=== PATIENT | male | born 1955 | race Two or more races ===

== ENCOUNTER 2018-05-16 13:04 | Emergency (ER) | payer MEDICAID ==
[~2018-05-16] VITALS: Ht 170.2 cm; Wt 74.8 kg
[2018-05-16] MEDS ORDERED: LOSARTAN POTASS50 MG ORAL (13:43)
[2018-05-16] MEDS ORDERED: GLIPIZIDE5 MG ORAL (13:43)
[2018-05-16] MEDS ORDERED: JANUVIA100 MG ORAL (13:43)
[2018-05-16] MEDS ORDERED: AMLODIPINE BESYL5 MG ORAL (13:43)
[2018-05-16] MEDS ORDERED: ATORVASTATIN CA10 MG ORAL (13:43)
[2018-05-16] MEDS ORDERED: METFORMIN HCL850 M1 ORAL (13:43)
[2018-05-16] MEDS ORDERED: ASPIR 8181 MG ORAL (13:43)
--- NOTE | 2018-05-16 14:18 | Emergency Room Report ---
History of Present Illness General Chief Complaint: Laceration Source: Patient Present Illness HPI 63-year-old male presents to the emergency department complaining of laceration which he sustained yesterday at 1:00 to the webbing of his left hand between his thumb and index finger. Patient states that on occasion it will begin bleeding again. Pt. denies pain. Patient states that he has a history of diabetes he ascribes that he was washing dishes when a rash broke and caused laceration. Patient denies suspicion for possible foreign body. He states that he rinsed them well when the injury occurred and applied pressure which did stop bleeding at that time. He states that he is right-hand dominant. He denies taking blood thinning medications. Denies paresthesias. Allergies: Coded Allergies: AMOXICILLIN (Verified Allergy, Unknown, 05/16/18) Patient History Past Medical History: see triage record, DM Past Surgical History: none Pertinent Family History: none Immunizations: UTD Reviewed Nursing Documentation: PMH: Agreed; PSxH: Agreed Nursing Documentation-PMH Past Medical History: No History, Except For Hx Hypertension: Yes - hyperlipidemia ,htn Hx Diabetes: Yes - type 2 Review of Systems All Other Systems: negative except mentioned in HPI Physical Exam Vital Signs Date Time Temp Pulse Resp B/P (MAP) Pulse Ox O2 Delivery O2 Flow Rate FiO2 05/16/18 13:11 98.6 95 17 148/77 95 Room Air Sp02 EP Interpretation: reviewed, normal General Appearance: no apparent distress, alert, GCS 15, non-toxic Head: normocephalic, atraumatic Eyes: bilateral eye normal inspection, bilateral eye PERRL ENT: hearing grossly normal, normal voice Neck: full range of motion Respiratory: lungs clear, normal breath sounds, speaking full sentences Cardiovascular #1: regular rate, rhythm, normal capillary refill Musculoskeletal: back normal, gait/station normal, normal range of motion, non- tender Neurologic: alert, oriented x3, responsive, motor strength/tone normal, sensory intact, speech normal, grossly normal Psychiatric: judgement/insight normal Skin: normal color, no rash, warm/dry, well hydrated, laceration - linear laceration to the webbed space of the left thumb that is approx 0.4 cm in length Medical Decision Making PA Attestation Dr. Mar is my supervising Physician whom patient management has been discussed with. Diagnostic Impression: Primary Impression: Laceration ER Course 63-year-old male presents to the emergency department complaining of laceration which he sustained yesterday at 1:00 to the webbing of his left hand between his thumb and index finger. Patient states that on occasion it will begin bleeding again. Pt. denies pain. Patient states that he has a history of diabetes he ascribes that he was washing dishes when a rash broke and caused laceration. Patient denies suspicion for possible foreign body. He states that he rinsed them well when the injury occurred and applied pressure which did stop bleeding at that time. He states that he is right-hand dominant. He denies taking blood thinning medications. Denies paresthesias. Ddx considered but are not limited to laceration, tendon injury, cellulitis, amputation Vital signs: are WNL, pt. is afebrile H&PE are most consistent with: linear laceration to the webbed space of the left thumb that is approx 0.4 cm in length ORDERS: none required at this time, the diagnosis is clinical ED INTERVENTIONS: -Tetanus vaccine was administered as pt. vaccination status was unknown. - The wound was copiously irrigated with normal saline, and explored for foreign body for which no FB was found. -Bacitracin and sterile dressing is applied. - Thumb Spika Splint applied to the Left hand by medical laboratory technician. Pt. remains neurovascularly intact. Discussed with patient That wound will heal by secondary intent. also that it is very well approximated and bleeding is well controlled. Splint will facilitate healing. will place on abx due to hx of DM. DISCHARGE: At this time pt. is stable for d/c to home. Will provide printed patient care instructions, and any necessary prescriptions. Care plan and follow up instructions have been discussed with the patient prior to discharge. Last Vital Signs Date Time Temp Pulse Resp B/P (MAP) Pulse Ox O2 Delivery O2 Flow Rate FiO2 05/16/18 13:11 98.6 95 17 148/77 95 Room Air Disposition: HOME, SELF-CARE Condition: Stable Scripts Clindamycin Hcl (CLINDAMYCIN HCL) 300 Mg Capsule 300 MG ORAL FOUR TIMES A DAY for 7 Days, #28 CAP Prov: Liza Winston 05/16/18 Bacitracin/Polymyxin B Sulfate (BACITRACIN-POLYMYXIN OINTMENT) 28.35 Gm Oint...g. 1 APPLIC TP BID, #28.3 GM Prov: Liza Winston 05/16/18 Referrals: NON PHYSICIAN (PCP) Patient Instructions: Nonsutured Laceration Care Additional Instructions: Take medications as directed. Keep clean and Dry Follow up with a Primary Care Provider in 3-5 days, even if your symptoms have resolved. --Please review list of primary care clinics, if you do not already have a primary care provider Return sooner to ED if new symptoms occur, or current symptoms become worse. - Please note that this Emergency Department Report was dictated using [employer] technology software, occasionally this can lead to erroneous entry secondary to interpretation by the dictation equipment. Liza Winston May 16, 2018 14:18
[2018-05-16] MEDS ORDERED: CLINDAMYCIN HC300 MG ORAL (14:20)
[2018-05-16] MEDS ORDERED: BACITRACIN-P28.35 GM TP (14:20)
[2018-05-16 14:25] VITALS: BP 135/72
== END 2018-05-16 14:25 | disposition home or self-care (01) ==
LOC: EMR 13:40
DX: S61.412A Laceration without foreign body of left hand, initial encounter (principal); W25.XXXA Contact with sharp glass, initial encounter; Y93.G1 Activity, food preparation and clean up; Y92.9 Unspecified place or not applicable; I10 Essential (primary) hypertension; E11.9 Type 2 diabetes mellitus without complications; E78.5 Hyperlipidemia, unspecified; Z88.0 Allergy status to penicillin
CPT/HCPCS: 99283